=== PATIENT | male | born 1990 | race Caucasian/White ===

== ENCOUNTER 2020-08-26 14:27 | Emergency (ER) | payer OTHER ==
[~2020-08-26] VITALS: Ht 193 cm; Wt 115.7 kg
[2020-08-26 14:27] VITALS: BP_SYST 158
[2020-08-26 16:10] VITALS: BP_SYST 134
== END 2020-08-26 16:25 | disposition home or self-care (01) ==
LOC: SED 14:27
DX: F41.0 Panic disorder [episodic paroxysmal anxiety] (principal); F14.90 Cocaine use, unspecified, uncomplicated; F12.90 Cannabis use, unspecified, uncomplicated; I25.2 Old myocardial infarction
CPT/HCPCS: 71045; 93005; 99283